=== PATIENT | male | born 1960 ===

== ENCOUNTER 2017-07-09 21:12 | Emergency (ER) | payer MEDICAID ==
[2017-07-09] MEDS ORDERED: Naproxen 550 mg Tab PO STA (23:36)
--- NOTE | 2017-07-09 23:38 | C.PDOC ---
Chief Complaint (Nursing): Dizziness/Lightheaded Past Medical History Vital Signs: Last Vital Signs Temp 98.1 F 07/09/17 21:34 Pulse 65 07/09/17 23:01 Resp 20 07/09/17 23:01 BP 132/89 07/09/17 23:01 Pulse Ox 98 07/09/17 23:01 - Medical History PMH: HTN - Social History Hx Alcohol Use: Yes Hx Substance Use: No - Immunization History Hx Tetanus Toxoid Vaccination: No Hx Influenza Vaccination: No Hx Pneumococcal Vaccination: No ED Course And Treatment O2 Sat by Pulse Oximetry: 98 Disposition - Disposition
[2017-07-09] MEDS ORDERED: Naproxen 550 mg Tab PO ONE (23:53)
--- NOTE | 2017-07-10 00:04 | C.PDOC ---
History Of Present Illness 37 y/o male presents to the ED for evaluation s/p fall that occurred tonight. Patient states he tripped over loose wires on the sidewalk, twisting his left ankle and striking his right knee on the ground. No head injury or LOC. Now complaining of left ankle pain and right knee pain. Patient is ambulatory. No changes in sensation, neck pain, back pain, or other injuries at this time. - HPI Time Seen by Provider: 07/09/17 23:29 Chief Complaint (Nursing): Dizziness/Lightheaded History Per: Patient History/Exam Limitations: no limitations Onset/Duration Of Symptoms: Hrs Injury Occurred (Timing): Today @ (7 pm) Location Of Injury: Right: Knee, Left: Ankle - Fall Fall:Prior To Injury: Tripped Past Medical History Reviewed: Historical Data, Nursing Documentation, Vital Signs Vital Signs: Last Vital Signs Temp 98.0 F 07/10/17 01:07 Pulse 70 07/10/17 01:07 Resp 16 07/10/17 01:07 BP 145/96 H 07/10/17 01:07 Pulse Ox 98 07/10/17 01:29 - Medical History PMH: HTN Surgical History: Hernia Repair Family History: States: No Known Family Hx - Social History Hx Tobacco Use: No Hx Alcohol Use: Yes Hx Substance Use: No - Immunization History Hx Tetanus Toxoid Vaccination: No Hx Influenza Vaccination: No Hx Pneumococcal Vaccination: No Review Of Systems Except As Marked, All Systems Reviewed And Found Negative. Musculoskeletal: Positive for: Leg Pain (right knee), Foot Pain (left ankle). Negative for: Neck Pain, Back Pain Skin: Negative for: Lesions Neurological: Negative for: Weakness, Numbness, Other (LOC/head injury) Physical Exam - Physical Exam Appears: Well, Non-toxic, No Acute Distress Skin: Warm, Dry Head: Atraumatic, Normacephalic, No Swelling (or evidence of head trauma) Eye(s): bilateral: Normal Inspection, PERRL, EOMI Ear(s): Bilateral: Normal Nose: Normal Oral Mucosa: Moist Neck: Normal ROM, No Midline Cervical Tenderness, Supple Chest: Symmetrical, No Tenderness Cardiovascular: Rhythm Regular, No Murmur, Other (S1,S2 are wnl) Respiratory: Normal Breath Sounds, No Rales, No Rhonchi, No Wheezing Gastrointestinal/Abdominal: Soft, No Tenderness, No Distention Extremity: No Calf Tenderness, Capillary Refill (< 2 sec), Swelling (Mild soft tissue swelling around medial and lateral mall of left ankle), Other (Abrasion to right knee, no hemarthrosis, obvious deformity, or joint laxity) Pulses: Left Dorsalis Pedis: Normal, Right Dorsalis Pedis: Normal Neurological/Psych: Oriented x3, Normal Speech ED Course And Treatment O2 Sat by Pulse Oximetry: 98 (RA) Pulse Ox Interpretation: Normal - Other Rad XR left ankle X-Ray: Interpreted by Me, Viewed By Me Interpretation: Negative fracture, negative dislocation XR right knee X-Ray: Interpreted by Me, Viewed By Me Interpretation: Negative fracture, negative dislocation Medical Decision Making Medical Decision Making: Impression: Right knee pain, Left ankle pain s/p mechanical fall Time: 23:36 Initial Plan: * Naproxen 550 mg PO * X-ray left ankle * X-ray right knee Patient informed of diagnostic results. On reevaluation patient reports improvement in pain. Will d/c home with Rx for Naproxen. Advised to follow up with the clinic for further evaluation. Disposition Counseled Patient/Family Regarding: Studies Performed, Diagnosis, Need For Followup, Rx Given - Disposition Referrals: [facility] [Outside] Disposition: HOME/ ROUTINE Disposition Time: 01:08 Condition: GOOD Prescriptions: Naproxen [Naprosyn] 500 mg PO BID #20 tablet Instructions: Preventing Falls in the Older Adult, Ankle Sprain (DC) Forms: [employer] (Slovak) Print Language: GREEK - POA Present On Arrival: Falls Or Trauma - Clinical Impression Clinical Impression: Fall - Scribe Statement The provider has reviewed the documentation as recorded by the Scribe (Alivia Maguire) Provider Attestation: All medical record entries made by the Scribe were at my direction and personally dictated by me. I have reviewed the chart and agree that the record accurately reflects my personal performance of the history, physical exam, medical decision making, and the department course for this patient. I have also personally directed, reviewed, and agree with the discharge instructions and disposition.
[2017-07-10 01:09] VITALS: BP 145/96; PULSE 70; RESP 16; TEMP 98
[2017-07-10 01:29] VITALS: O2SAT 98
--- NOTE | 2017-07-10 08:34 | RAD ---
PROCEDURE: Right Knee Radiographs. HISTORY: trauma COMPARISON: None. FINDINGS: BONES: Normal. No fracture. JOINTS: Normal. No osteoarthritis. JOINT EFFUSION: None. OTHER FINDINGS: None. IMPRESSION: Normal radiographs of the right knee.
--- NOTE | 2017-07-10 08:36 | RAD ---
PROCEDURE: Left Ankle Radiographs. HISTORY: trauma COMPARISON: None FINDINGS: BONES: Tibial/medial malleolar medial talar arthro pathic osseous hypertrophic changes present can be posttraumatic arthrosis. No acute fracture appreciated. Well corticated ossification chronic finding borders calcaneus on oblique view. JOINTS: Normal. No osteoarthritis. Ankle mortise maintained. Talar dome intact SOFT TISSUES: Normal. OTHER FINDINGS: None. IMPRESSION: No acute fracture. Medial tibiotalar arthrosis
== END 2017-07-10 01:32 | disposition home or self-care (01) ==
LOC: C.ER 21:12
DX: M25.572 Pain in left ankle and joints of left foot (principal); M25.561 Pain in right knee; W01.0XXA Fall on same level from slipping, tripping and stumbling without subsequent striking against object, initial encounter